=== PATIENT | female | born 1965 | race Caucasian/White ===

== ENCOUNTER → 2016-10-22 | Outpatient (REF) | payer OTHER ==
[~2016-10-22] MED LIST: CAL-150C PO; FERR220E2 PO; FLUO20CA8 PO; FOLI1TAB2 PO; LORT5TAB PO; MOTR200T44 PO; MULTCAP PO; VITA100L PO; VITA500046 PO
[2016-10-22 14:02] LABS: PERCENT SATURATION 21.8 % (13.2-37.4); TOTAL IRON BINDING CAPACITY 377 UG/DL (250-450)
[2016-10-22 14:09] LABS: FOLATE > 24.0 NG/ML; VITAMIN B12 LEVEL 560 PG/ML
== END ==
LOC: M LAB REF 12:38
PROVIDERS: ATTEND Nurse Practitioner Family
DX: D50.9 Iron deficiency anemia, unspecified (principal); Z98.84 Bariatric surgery status

== ENCOUNTER → 2017-03-20 | Outpatient (REF) | payer OTHER ==
[~2017-03-20] MED LIST changes: -FOLI1TAB2 PO; +FOLI1TAB4 PO
[2017-03-20 11:58] LABS: BASO # 0.1 10^3/uL (0.0-0.2); BASO % 1.3 % (0.0-1.0); EOS # 0.1 10^3/uL (0.0-0.50); EOS % 1.7 % (0.0-3.0); IMMATURE GRANULOCYTE % 0.2 % (0-0); LYMPH # 1.7 10^3/uL (1.5-4.5); LYMPH % 36.2 % (24.0-44.0); MEAN CORPUSCULAR HEMOGLOBIN 29.4 pg (27.0-33.0); MEAN CORPUSCULAR HGB CONC 33.1 g/dl (32.0-36.5); MEAN CORPUSCULAR VOLUME 88.8 fl (80.0-96.0); MONO # 0.4 10^3/uL (0.0-0.8); MONO % 7.6 % (0.0-5.0); NEUTROPHILS # 2.5 10^3/uL (1.8-7.7); PLATELET COUNT, AUTOMATED 341 10^3/uL (150-450); RED CELL DISTRIBUTION WIDTH 12.6 % (11.5-14.5); WHITE BLOOD COUNT 4.8 10^3/uL (4.0-10.0)
[2017-03-20 12:29] LABS: ERYTHROCYTE SEDIMENTATION RATE 24 mm/hr (0-30)
[2017-03-22 00:06] LABS: Lyme Disease IgG/IgM Antibodie <0.91 ISR (0.00-0.90); Lyme Disease IgM Ab Quantitati <0.80 index (0.00-0.79)
== END ==
LOC: M LABDRAW1 10:03
PROVIDERS: ATTEND Physician Assistant Surgical
DX: M25.561 Pain in right knee (principal)

== ENCOUNTER → 2017-11-04 | Outpatient (REF) | payer OTHER ==
[2017-11-04 18:44] LABS: IRON (FE) 97 UG/DL (50-170); PERCENT SATURATION 24.9 % (13.2-45.0); TOTAL IRON BINDING CAPACITY 389 UG/DL (250-450)
[2017-11-04 18:50] LABS: VITAMIN B12 LEVEL 416 PG/ML
[2017-11-04 18:51] LABS: FOLATE > 24.0 NG/ML
== END ==
LOC: M LAB REF 17:48
DX: Z98.84 Bariatric surgery status (principal); D50.9 Iron deficiency anemia, unspecified

== ENCOUNTER → 2018-11-05 | Outpatient (REF) | payer OTHER ==
[~2018-11-05] MED LIST changes: -FERR220E2 PO; +FERR220L PO; +FOLI1TAB11 PO; -FOLI1TAB4 PO
[2018-11-05 13:32] LABS: IRON (FE) 66 UG/DL (50-170)
[2018-11-05 13:41] LABS: FOLATE > 24.0 NG/ML; VITAMIN B12 LEVEL 1147 PG/ML
== END ==
LOC: M LAB REF 12:18
PROVIDERS: ATTEND Nurse Practitioner Family
DX: Z98.84 Bariatric surgery status (principal); D50.9 Iron deficiency anemia, unspecified

== ENCOUNTER → 2018-11-18 | Outpatient (REF) | payer OTHER | LOC: M LAB REF 17:18 | PROVIDERS: ATTEND Radiology Diagnostic Radiology | DX: N63.10 Unspecified lump in the right breast, unspecified quadrant (principal) ==

== ENCOUNTER 2019-04-12 17:18 | Emergency (ER) | payer OTHER ==
[~2019-04-12] VITALS: Ht 165.1 cm; Wt 104.5 kg
[~2019-04-12 17:18] MED LIST changes: +FERR1ELX PO; -FERR220L PO
[2019-04-12] MEDS ORDERED: KETOROLAC 30 MG/ML VIAL (J1885) IV ONE (17:45)
[2019-04-12 18:15] LABS: BASO # 0.1 10^3/uL (0.0-0.2); BASO % 0.8 % (0.0-1.0); EOS # 0.1 10^3/uL (0.0-0.5); EOS % 1.3 % (0.0-3.0); HEMOGLOBIN 13.7 g/dl (12.0-15.5); LYMPH # 2.4 10^3/uL (1.5-5.0); LYMPH % 38.6 % (24.0-44.0); MEAN CORPUSCULAR HGB CONC 32.6 g/dl (32.0-36.5); MONO # 0.4 10^3/uL (0.0-0.8); MONO % 6.1 % (0.0-5.0); NEUTROPHILS # 3.3 10^3/uL (1.5-8.5); NEUTROPHILS % 52.9 % (36.0-66.0); PLATELET COUNT, AUTOMATED 344 10^3/uL (150-450); RED BLOOD COUNT 4.72 10^6/uL (4.00-5.40); WHITE BLOOD COUNT 6.2 10^3/uL (4.0-10.0)
[2019-04-12 18:28] LABS: ALBUMIN 3.7 GM/DL (3.2-5.2); ALT/SGPT 21 U/L (12-78); BILIRUBIN,DIRECT 0.1 MG/DL (0.0-0.2); BILIRUBIN,TOTAL 0.4 MG/DL (0.2-1.0); BLOOD UREA NITROGEN 11 MG/DL (7-18); CALCIUM LEVEL 9.4 MG/DL (8.5-10.1); CARBON DIOXIDE LEVEL 26 MEQ/L (21-32); CHLORIDE LEVEL 111 MEQ/L (98-107); CREATININE FOR GFR 0.69 MG/DL (0.55-1.30); GLOMERULAR FILTRATION RATE > 60.0 (>51); GLUCOSE, FASTING 88 MG/DL (70-100); LIPASE 192 U/L (73-393); SODIUM LEVEL 142 MEQ/L (136-145); TOTAL PROTEIN 7.3 GM/DL (6.4-8.2)
[2019-04-12] MEDS ORDERED: ISOVUE-370 76% 100ML VIAL (Q9967) As Ordered ONE (19:20)
--- NOTE | 2019-04-12 20:19 | REPVR ---
PROCEDURE INFORMATION: Exam: CT Abdomen And Pelvis With Contrast Exam date and time: 04/12/2019 7:22 PM Clinical history: 53 years old, female; Abdominal pain; Generalized; Additional info: Lower abd pain TECHNIQUE: Imaging protocol: Computed tomography of the abdomen and pelvis with intravenous contrast. Radiation optimization: All CT scans at this facility use at least one of these dose optimization techniques: automated exposure control; mA and/or kV adjustment per patient size (includes targeted exams where dose is matched to clinical indication); or iterative reconstruction. Contrast material: ISOVUE 370; Contrast volume: 100 ml; Contrast route: IV; COMPARISON: CT ABD PELVIS WITH CONTRAST 07/01/2013 2:52 AM FINDINGS: Lungs: No suspicious mass or airspace process in the visualized lung bases. Liver: Liver appears normal with no focal abnormality. Gallbladder and bile ducts: Gallbladder is surgically absent. Pancreas: Pancreas appears normal. No focal mass or peripancreatic inflammation. Spleen: Spleen appears homogeneous without focal mass. Adrenals: Adrenal glands are normal in appearance. Kidneys and ureters: Kidneys are unremarkable aside from an anterior midpole 1 cm right renal cyst measuring simple fluid density and requiring no followup. 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 No obstruction, dehiscence or adjacent fluid collection. No evidence of small bowel obstruction. No evidence of acute diverticulitis. Appendix: Appendix is not seen. No RLQ inflammation to suggest appendicitis. Intraperitoneal space: No pneumoperitoneum. No abnormal pelvic mass. Vasculature: Main portal and splenic veins enhance normally. No aortic aneurysm. Lymph nodes: No enlarged lymph nodes. Bladder: Urinary bladder appears normal. Reproductive: Uterus is surgically absent. Bones/joints: Bony structures are normal except for lumbar spine degenerative disc changes. Soft tissues: Fat containing umbilical hernia is present. IMPRESSION: 1. No acute surgical or inflammatory intra-abdominal or pelvic process. 2. Incidental findings, as outlined above COMMENT: Consistent with the [employer]'s Incidental Findings Committee Report (J Am Rocco Radiol 2010): Unless the patient's specific circumstances suggest otherwise, any liver lesion 0.5 cm or less, any cystic kidney lesion less than 1.0 cm, and/or any adrenal lesion 1.0 cm or less not otherwise characterized in this report as possessing suspicious or indeterminate imaging features is/are highly likely to be benign and do not require follow-up imaging or biopsy. Electronically signed by: Chidi Gagnon On 04/12/2019 20:18:04 PM
[2019-04-12] MEDS ORDERED: MACR100C43 PO (20:37)
[2019-04-12 20:43] VITALS: BP 143/68
[2019-04-12] MEDS ORDERED: NITROFURANTOIN (MACROBID) 100 MG CAP PO ONE (20:45)
== END 2019-04-12 20:52 | disposition home or self-care (01) ==
LOC: M ED 17:18
DX: N39.0 Urinary tract infection, site not specified (principal); G47.33 Obstructive sleep apnea (adult) (pediatric); D64.9 Anemia, unspecified; E66.9 Obesity, unspecified; Z79.899 Other long term (current) drug therapy
CPT/HCPCS: 74177; 80048; 80076; 81001; 83690; 85025; 87086; 96374; 99284; J1885; Q9967

== ENCOUNTER → 2019-11-09 | Outpatient (REF) | payer OTHER ==
[~2019-11-09] MED LIST changes: +FLUO20CA20 PO; -FLUO20CA8 PO; +MACR100C43 PO
[2019-11-09 12:16] LABS: IRON (FE) 87 UG/DL (50-170)
[2019-11-09 12:17] LABS: VITAMIN B12 LEVEL 507 PG/ML
[2019-11-09 12:18] LABS: FOLATE > 24.0 NG/ML
== END ==
LOC: M LAB REF 11:24
PROVIDERS: ATTEND Nurse Practitioner Family
DX: Z98.84 Bariatric surgery status (principal); D50.9 Iron deficiency anemia, unspecified

== ENCOUNTER → 2020-11-15 | Outpatient (REF) | payer OTHER ==
[2020-11-15 14:52] LABS: PERCENT SATURATION 21.4 % (13.2-45.0)
[2020-11-15 15:00] LABS: FOLATE 19.1 NG/ML
== END ==
LOC: M LAB REF 12:37
PROVIDERS: ATTEND Physician Assistant Medical
DX: Z98.84 Bariatric surgery status (principal)

== ENCOUNTER → 2021-11-19 | Outpatient (REF) | payer OTHER ==
[~2021-11-19] MED LIST changes: +FLUO-96 PO; -FLUO20CA20 PO
[2021-11-19 14:24] LABS: FERRITIN 8 NG/ML (8-252); IRON (FE) 79 UG/DL (50-170)
[2021-11-19 14:27] LABS: FOLATE > 24.0 NG/ML; TOTAL 25(OH) VITAMIN D 25.5 NG/ML (30.0-100.0); VITAMIN B12 LEVEL 321 PG/ML
== END ==
LOC: M LAB REF 13:13
PROVIDERS: ATTEND Registered Nurse
DX: D50.9 Iron deficiency anemia, unspecified (principal); Z98.84 Bariatric surgery status

== ENCOUNTER → 2021-11-20 | Outpatient (CLI) | payer OTHER | LOC: M WUC 08:52 | PROVIDERS: ATTEND Registered Nurse | DX: M25.551 Pain in right hip (principal); M25.552 Pain in left hip ==